=== PATIENT | female | born 1985 | race Caucasian/White ===

== ENCOUNTER 2020-02-28 21:23 | Emergency (ER) | payer OTHER ==
[~2020-02-28 21:23] MED LIST: Iopamidol-370 76% 500 ML 1 ML ONE
[2020-02-28 21:59] LABS: #Basophils 0.1 thou/uL (0.0-0.2); #Eosinphils 0.1 thou/uL (0.0-0.7); #Lymphocytes 2.5 thou/uL (1.20-3.40); #Monocytes 0.4 thou/uL (0.11-0.59); #Neutrophils 5.3 thou/uL (1.40-6.50); %Basophils 0.7 % (0.0-1.0); %Eosinophils 1.2 % (0.0-10.0); %Lymphocytes 30.6 % (21.0-51.0); %Monocytes 4.4 % (0.0-10.0); %Neutrophils 63.2 % (42.0-75.0); Hemoglobin 14.9 g/dL (12.0-16.0); Mean Corpuscular HGB CONC 33.4 g/dL (32.0-36.0); Mean Corpuscular Hemoglobin 29.1 pg (27.0-31.0); Mean Platelet Volume 9.2 fL (7.4-10.4); Platelet Count 254 thou/uL (130-400); RBC Distribution Width 11.9 % (11.5-14.5); Red Blood Cell (RBC) Count 5.12 mill/uL (4.20-5.40); White Blood Cell (WBC) Count 8.3 thou/uL (4.8-10.8)
[2020-02-28 22:09] LABS: INR-International Normal Ratio 1.1; Prothrombin Time 13.8 sec (12.0-14.7)
[2020-02-28 22:16] LABS: BHCG - Serum Negative (NEGATIVE); Pregs Control Background? CLEAR/WHITE (CLR/WHITE); Pregs Control Bar Appear? YES (CONTROL BAR)
[2020-02-28 22:18] LABS: ALT (SGPT) 11 U/L (8-55); AST (SGOT) 15 U/L (5-34); Albumin 5.1 g/dL (3.5-5.0); Alkaline Phosphatase 69 U/L (40-110); Anion Gap 15 mmol/L (10-20); BUN (Urea Nitrogen) 9 mg/dL (7.0-18.7); Bilirubin, Total 1.3 mg/dL (0.2-1.2); Calc. Creatinine Clearance 0 mL/min (70-130); Calcium 9.4 mg/dL (7.8-10.44); Carbon Dioxide 26 mmol/L (22-29); Chloride 103 mmol/L (98-107); Estimated GFR-MDRD 86; Globulin 3.7 g/dL (2.4-3.5); Glucose 117 mg/dL (70-105); Potassium 3.6 mmol/L (3.5-5.1); Protein, Total 8.8 g/dL (6.0-8.3); Sodium 140 mmol/L (136-145)
--- NOTE | 2020-02-28 23:01 | CT ---
Exam: CT angiogram of the chest HISTORY: History of pulmonary embolus. Difficulty breathing. Dyspnea. COMPARISON: None TECHNIQUE: CT angiogram of the chest is performed in the axial plane. Three-dimensional reformatted i mages are submitted for interpretation FINDINGS: Mediastinum: No mass, lymphadenopathy or hematoma. HEART: Normal size. No significant pericardial fluid. Aorta: No aneurysm or dissection Upper solid abdominal viscera: 1.9 x 1.7 cm hypodensity in the right hepatic lobe, incompletely evalu ated. Trachea and central bronchi: Patent Pleural spaces: No effusion Lung parenchyma: No masses or consolidation. Pneumothorax: None Osseous structures: No lytic or blastic lesions Pulmonary arteries: Adequate contrast opacification pulmonary arterial system to the level of segment al arteries. No filling defect to suggest pulmonary embolism IMPRESSION: 1. No evidence of pulmonary artery embolus the level of the segmental arteries. 2. Indeterminate incompletely evaluated hypodensity in the posterior segment of the right hepatic lob e. Nonemergent follow-up imaging can be performed.
== END 2020-02-28 23:26 | disposition home or self-care (01) ==
LOC: ERS 21:23
DX: R07.89 Other chest pain (principal); Z86.718 Personal history of other venous thrombosis and embolism; Z86.711 Personal history of pulmonary embolism
CPT/HCPCS: 71275; 80053; 84484; 84703; 85025; 85610; 85730; 93005; Q9967

== ENCOUNTER 2020-04-29 13:36 | Emergency (ER) | payer OTHER ==
[2020-04-29 14:12] LABS: Hemoglobin 16.3 g/dL (12.0-16.0); Mean Corpuscular HGB CONC 33.4 g/dL (32.0-36.0); Mean Corpuscular Hemoglobin 29.5 pg (27.0-31.0); Mean Corpuscular Volume 88.3 fL (78.0-98.0); Mean Platelet Volume 8.8 fL (7.4-10.4); Platelet Count 382 thou/uL (130-400); Red Blood Cell (RBC) Count 5.54 mill/uL (4.20-5.40); White Blood Cell (WBC) Count 20.9 thou/uL (4.8-10.8)
[2020-04-29 14:27] LABS: Bilirubin 1+ (Negative); Blood, Urine Negative (Negative); Clarity Turbid (Clear); Glucose, Urine (Dipstick) Normal (Negative); Ketone, Urine Negative (Negative); Leukocyte 500 Leu/uL (Negative); Mucous/LPF Rare LPF (<2+); Nitrite Negative (Negative); Protein, Urine (Dipstick) 50 mg/dL (Neg-Trace); Specific Gravity, Urine 1.032 (1.002-1.036); Urobilinogen Greater than 12 mg/dL (Less than 2)
[2020-04-29 14:27] LABS: Band 5 % (5-11); Lymphocytes 16 % (21-51); MDiff Complete? YES; Monocytes 4 % (0-10); Neutrophil 73 % (42-75); Platelet Morphology Comment Appears Adequate; RBC Morphology Normal; Reactive Lymphocytes 2 % (0-10)
[2020-04-29 14:31] LABS: ALT (SGPT) 19 U/L (8-55); AST (SGOT) 16 U/L (5-34); Albumin 3.5 g/dL (3.5-5.0); Alkaline Phosphatase 74 U/L (40-110); Anion Gap 15 mmol/L (10-20); BUN (Urea Nitrogen) 12 mg/dL (7.0-18.7); Bilirubin, Total 2.8 mg/dL (0.2-1.2); Calc. Creatinine Clearance 0 mL/min (70-130); Calcium 8.9 mg/dL (7.8-10.44); Carbon Dioxide 24 mmol/L (22-29); Chloride 98 mmol/L (98-107); Estimated GFR-MDRD 78; Globulin 3.4 g/dL (2.4-3.5); Glucose 127 mg/dL (70-105); Potassium 4.6 mmol/L (3.5-5.1); Protein, Total 6.9 g/dL (6.0-8.3); Sodium 132 mmol/L (136-145)
[2020-04-29 14:36] LABS: Bacteria/HPF 1+ HPF (None Seen); RBC/HPF 0-3 HPF (0-3)
[2020-04-29 14:54] LABS: BHCG - Serum Negative (NEGATIVE); Pregs Control Background? CLEAR/WHITE (CLR/WHITE); Pregs Control Bar Appear? YES (CONTROL BAR)
[2020-04-29] MEDS ORDERED: Ondansetron ODT 4 MG TAB ONE (15:00)
[2020-04-29] MEDS ORDERED: Ondansetron PF 4 MG/2 ML Vial ONE (15:01)
[2020-04-29] MEDS ORDERED: cefTRIAXone\\ROCEPHIN 2 GM VIAL ONE (15:56)
[2020-04-29] MEDS ORDERED: Metoclopramide HCl 10 MG/2 ML VIAL ONE (16:47)
[2020-04-29] MEDS ORDERED: Promethazine HCl 25 MG/ML VIAL ONE (18:02)
== END 2020-04-29 19:23 | disposition home or self-care (01) ==
LOC: ERS 13:36
DX: N39.0 Urinary tract infection, site not specified (principal); D72.829 Elevated white blood cell count, unspecified; R11.2 Nausea with vomiting, unspecified
CPT/HCPCS: 36415; 80053; 81003; 81015; 83605; 84703; 85025; 87040; 87077; 87086; 87186; 96361; 96365; 96367; 96375; J0696; J2405; J2550; J2765; Q0162

== ENCOUNTER 2020-12-22 05:54 | Emergency (ER) | payer OTHER | END 2020-12-22 07:50 | disposition home or self-care (01) | LOC: ERS 05:54 → EEVIPCON 05:54 → ERS 07:50 | DX: O99.613 Diseases of the digestive system complicating pregnancy, third trimester (principal); K64.4 Residual hemorrhoidal skin tags; K59.00 Constipation, unspecified; Z86.718 Personal history of other venous thrombosis and embolism; Z86.711 Personal history of pulmonary embolism; Z79.01 Long term (current) use of anticoagulants; Z79.4 Long term (current) use of insulin; Z3A.33 33 weeks gestation of pregnancy | CPT/HCPCS: 99283 ==

== ENCOUNTER 2021-12-11 13:16 | Emergency (ER) | payer OTHER ==
[2021-12-11] MEDS ORDERED: Iopamidol-370 76% 500 ML 1 ML ONE (13:40)
[2021-12-11 13:56] LABS: #Basophils 0.1 thou/uL (0.0-0.2); #Eosinphils 0.1 thou/uL (0.0-0.7); #Lymphocytes 2.2 thou/uL (1.20-3.40); #Monocytes 0.3 thou/uL (0.11-0.59); #Neutrophils 3.6 thou/uL (1.40-6.50); %Basophils 0.9 % (0.0-1.0); %Eosinophils 1.6 % (0.0-10.0); %Lymphocytes 35.5 % (21.0-51.0); %Neutrophils 58.1 % (42.0-75.0); Hemoglobin 13.9 g/dL (12.0-16.0); Mean Corpuscular HGB CONC 33.4 g/dL (32.0-36.0); Mean Corpuscular Hemoglobin 28.7 pg (27.0-31.0); Mean Platelet Volume 9.1 fL (7.4-10.4); Platelet Count 246 thou/uL (130-400); RBC Distribution Width 13.4 % (11.5-14.5); Red Blood Cell (RBC) Count 4.86 mill/uL (4.20-5.40); White Blood Cell (WBC) Count 6.2 thou/uL (4.8-10.8)
[2021-12-11 14:21] LABS: CKMB 0.8 ng/mL (0-6.6)
[2021-12-11 14:37] LABS: BHCG - Serum Negative (NEGATIVE); Pregs Control Background? CLEAR/WHITE (CLR/WHITE); Pregs Control Bar Appear? YES (CONTROL BAR)
[2021-12-11 14:41] LABS: PTT 30.9 sec (22.9-36.1); Prothrombin Time 13.6 sec (12.0-14.7)
[2021-12-11 14:45] LABS: ALT (SGPT) 12 U/L (8-55); AST (SGOT) 14 U/L (5-34); Albumin 4.5 g/dL (3.5-5.0); Alkaline Phosphatase 79 U/L (40-110); Anion Gap 16 mmol/L (10-20); BUN (Urea Nitrogen) 8 mg/dL (7.0-18.7); Bilirubin, Total 1.6 mg/dL (0.2-1.2); Calc. Creatinine Clearance 0 mL/min (70-130); Calcium 9.5 mg/dL (7.8-10.44); Carbon Dioxide 24 mmol/L (22-29); Chloride 104 mmol/L (98-107); Globulin 3.3 g/dL (2.4-3.5); Glucose 117 mg/dL (70-105); Potassium 4.1 mmol/L (3.5-5.1); Protein, Total 7.8 g/dL (6.0-8.3); Sodium 140 mmol/L (136-145)
== END 2021-12-11 16:20 | disposition home or self-care (01) ==
LOC: ERS 13:16
DX: R06.02 Shortness of breath (principal); I49.8 Other specified cardiac arrhythmias; Z86.711 Personal history of pulmonary embolism; Z86.718 Personal history of other venous thrombosis and embolism
CPT/HCPCS: 71045; 71275; 80053; 82553; 83880; 84484; 84703; 85025; 85610; 85730; 93005; Q9967

== ENCOUNTER 2021-12-29 07:03 | Outpatient (CLI) | payer OTHER | END 2021-12-29 07:04 | disposition home or self-care (01) | LOC: BICULT 07:03 | PROVIDERS: ATTEND Internal Medicine | DX: E01.0 Iodine-deficiency related diffuse (endemic) goiter (principal) | CPT/HCPCS: 76536 ==